=== PATIENT | female | born 1990 | race Two or more races ===

== ENCOUNTER 2019-01-10 21:17 | Emergency (ER) | payer SELFPAY ==
[~2019-01-10] VITALS: Ht 167.6 cm; Wt 59.0 kg
[2019-01-10] MEDS ORDERED: Haloperidol 5mg/ml Inj IM ONE (21:30)
--- NOTE | 2019-01-10 21:34 | Emergency Room Report ---
History of Present Illness General Chief Complaint: Behavioral Complaint Source: Patient, EMS Present Illness HPI This is a 28-year-old female with unknown psychiatric history. She was brought in for chief complaint of behavior disorder. She was acting erratically she was in front of somebody's house yelling and try to pull off her clothing. That person called 911. Patient denies suicidal thoughts homicidal thought. Denies any drug use. Denies any other complaint. Allergies: Coded Allergies: UNABLE TO ASSESS (Unverified , 01/10/19) pt unwilling to tell Patient History Past Medical History: see triage record, old chart reviewed Past Surgical History: none Family History: none Now: No Immunizations: other Reviewed Nursing Documentation: PMH: Agreed; PSxH: Agreed Review of Systems ENT: Denies: sore throat Cardiovascular: Denies: chest pain, palpitations Gastrointestinal/Abdominal: Denies: nausea, vomiting, diarrhea Musculoskeletal: Denies: back problems Skin: Denies: rash Neurological: Denies: BURR, seizures All Other Systems: negative except mentioned in HPI Physical Exam Vitals normal Sp02 EP Interpretation: reviewed, normal General Appearance: alert/responsive, no apparent distress, non-toxic Head: normocephalic, atraumatic Eyes: PERRL, EOMI ENT: oropharynx normal Neck: supple/symm/no masses Respiratory: effort normal, no rhonchi, no wheezing Cardiovascular: no murmur, gallop, rub Gastrointestinal: non-tender, no mass, non-distended, no rebound/guarding, normal bowel sounds Musculoskeletal: gait & station normal Neurologic: oriented x3, sensory intact, motor strength/tone normal Skin: no rash, normal palpation Medical Decision Making Diagnostic Impression: Primary Impression: Acute psychosis Additional Impression: Substance abuse ER Course Patient presents with acute psychosis probably secondary to substance abuse. She is now sleeping comfortably. Denies any suicidal thought homicidal thought. No criteria for 5150. Will discharge home in the morning. This patient is a chronic risk of self injury due to poor impulse control, limited coping skills, and judgment intermittently impaired by intoxication. I believe that the available clinical evidence to suggest that these characteristics derived primarily from personality disorder and are likely very stable over time. Hospitalization would likely attenuate risk of self-harm only during retirement period, without lasting risk reduction. Serious self-harm , while possible, would likely be inadvertent, and because of impulsivity, and foreseeable. For these reasons, I do not believe hospitalization would provide meaningful reduction in risk of self-harm. Status: improved Disposition: HOME, SELF-CARE Condition: Stable Scripts Olanzapine* (ZYPREXA*) 5 Mg Tablet 5 MG ORAL DAILY, #30 TAB Prov: Luis Beltrán MD 01/10/19 Patient Instructions: Self-Destructive Behavior Additional Instructions: Abstain from drugs and alcohol. Follow-up with mental health within a week. Return if worse. Luis Beltrán MD Jan 10, 2019 21:34
--- NOTE | 2019-01-10 21:35 | NUR ---
ED Nurse Note: Pt PETE from street c/o behavioral. Per EMS, pt was acting erratically and trying to take clothes off in traffic. Unable to assess medical history. VSS. No SOB. Breathing even and unlabored.
[2019-01-10 21:36] VITALS: BP 103/86
[2019-01-10 22:36] VITALS: BP 115/83
[2019-01-10] MEDS ORDERED: ZYPREXA5 MG ORAL (22:47)
[2019-01-11 00:55] VITALS: BP 105/70
[2019-01-11 02:34] VITALS: BP 100/68
--- NOTE | 2019-01-11 02:35 | NUR ---
ED Nurse Note: Pateint seen sleeping in bed. Appears calm. Breathing even and unlabored. Afebrile. VSS. Will cont to monitor.
[2019-01-11 04:40] VITALS: BP 106/75
[2019-01-11 05:39] VITALS: BP 110/72
[2019-01-11 05:46] VITALS: BP 110/72
--- NOTE | 2019-01-11 05:46 | NUR ---
ER DISCHARGE NOTE: Patient is cleared to be discharged per ERMD, pt is aox4, on room air, with stable vital signs. pt was given dc and prescription instructions, pt was able to verbalize understanding, pt id band removed. pt is able to ambulate with steady gait. pt took all belongings.
== END 2019-01-11 05:46 | disposition home or self-care (01) ==
LOC: EDBD 21:17 → EDSEX 21:17 → EMR 22:30
DX: F23 Brief psychotic disorder (principal); F19.10 Other psychoactive substance abuse, uncomplicated
CPT/HCPCS: 96372; 99283; J1630